=== PATIENT | female | born 1930 | race Two or more races ===

== ENCOUNTER 2017-01-04 08:08 | Emergency (ER) | payer MEDICARE, MEDICAID ==
[~2017-01-04] VITALS: Ht 154.9 cm; Wt 55.3 kg
[2017-01-04 08:17] VITALS: BP 104/55
== END 2017-01-04 09:37 | disposition home or self-care (01) ==
LOC: ER 08:10
DX: M47.892 Other spondylosis, cervical region (principal); M54.9 Dorsalgia, unspecified; G89.29 Other chronic pain; E11.9 Type 2 diabetes mellitus without complications; I10 Essential (primary) hypertension; Z88.6 Allergy status to analgesic agent
CPT/HCPCS: 72040

== ENCOUNTER 2017-06-22 19:55 | Inpatient (IN) | payer MEDICARE, MEDICAID ==
[~2017-06-22] VITALS: Ht 152.4 cm; Wt 55.1 kg
[2017-06-22] MEDS ORDERED: ACETAMINOPHEN 500 MG TAB PO ONE (20:01)
[2017-06-22] MEDS ORDERED: SODIUM CHLORIDE 0.9% 1,000 ML IV ONE (20:06)
[2017-06-22] MEDS ORDERED: ACETAMINOPHEN 325 MG TAB PO ONE (20:15)
[2017-06-22 20:39] LABS: Basophils # (auto) 0 uL; Basophils % (auto) 0.3 % (0.0-2.0); Eosinophils # (auto) 0 uL; Eosinophils % (auto) 0.1 % (0.0-7.0); Hematocrit 40.3 % (36.0-46.0); Hemoglobin 13.5 g/dL (12.2-16.2); Lymphocytes # (auto) 1.8 uL; Lymphocytes % (auto) 13.5 % (10.0-50.0); Mean Corpuscular Hgb Conc. 33.6 g/dL (32.0-36.0); Mean Corpuscular Volume 92.3 fL (80.0-100.0); Monocytes # (auto) 0.4 uL; Monocytes % (auto) 3.2 % (0.0-12.0); Neutrophils # (auto) 11.2 uL; Neutrophils % (auto) 82.9 % (37.0-80.0); Platelet Count (auto) 229 10^3/uL (140-450); Red Blood Cells 4.36 10^6/uL (4.0-5.20); Red Cell Distribution Width 14.1 % (11.8-14.3); White Blood Cell 13.6 10^3/uL (4.4-10.8)
[2017-06-22 20:56] LABS: Alanine Aminotransferase 39 U/L (13-56); Albumin 3.5 g/dL (3.4-5.0); Anion Gap 11 (5-15); Aspartate Aminotransferase 50 U/L (15-37); Blood Urea Nitrogen 11 mg/dL (7-18); Calcium 8.7 mg/dL (8.5-10.1); Carbon Dioxide 23 mmol/L (21-32); Chloride 97 mmol/L (98-107); GFR African American 120 mL/min; GFR Non-African American 99 mL/min; Glucose 258 mg/dL (74-106); Potassium 4.1 mmol/L (3.5-5.1); Sodium 131 mmol/L (136-145)
[2017-06-22 21:01] LABS: Alkaline Phosphatase 70 U/L (45-117); Lactic Acid w/Reflex 3.3 mmol/L (0.4-2.0); Total Protein 7.2 g/dL (6.4-8.2)
[2017-06-22] MEDS ORDERED: cefTRIAXone SOD 1,000 MG VL IV ONE (21:45)
[2017-06-22] MEDS ORDERED: cefTRIAXone 1GM/50ML D5W 50 ML IV ONE (23:12)
[2017-06-22 23:57] LABS: Urine Bacteria FEW /hpf (None Seen); Urine Blood Negative /uL (Negative); Urine Mucus FEW (None Seen); Urine Specific Gravity 1.013 (1.001-1.035); Urine WBC 1 /hpf (0 - 5)
[2017-06-23] MEDS ORDERED: VANCOMYCIN 1GM/250ML 250 ML IV ONE ×2 (00:51→01:30)
[2017-06-23] MEDS ORDERED: NOREPINEPHRINE 8 MG/250ML KIT 250 ML IV ONE (01:06)
[2017-06-23] MEDS ORDERED: NOREPINEPHRINE 8 MG/250ML KIT 250 ML IV SCH ×2 (01:30→14:30)
[2017-06-23] MEDS ORDERED: NITROGLYCERIN 0.4 MG SL TAB SL PRN (06:45)
[2017-06-23] MEDS ORDERED: MORPHINE SULFATE 10 MG/ML INJ 1ML SDV IV PRN (06:45)
[2017-06-23] MEDS ORDERED: ACETAMINOPHEN 500 MG TAB PO PRN (07:00)
[2017-06-23] MEDS ORDERED: ONDANSETRON HCL 4 MG/2 ML VIAL IV PRN (07:00)
[2017-06-23] MEDS ORDERED: HYDROcodone-ACET 5/325MG TAB PO PRN (07:00)
[2017-06-23] MEDS ORDERED: DEXTROSE (50%) 50ML SYRG IV PRN (07:00)
[2017-06-23] MEDS ORDERED: cefTRIAXone 1GM/50ML D5W 50 ML IV SCH ×2 (07:01→09:00)
[2017-06-23 07:12] LABS: Basophils # (auto) 0 uL; Basophils % (auto) 0.3 % (0.0-2.0); Eosinophils # (auto) 0 uL; Eosinophils % (auto) 0.3 % (0.0-7.0); Hematocrit 33.1 % (36.0-46.0); Lymphocytes # (auto) 1.8 uL; Lymphocytes % (auto) 15.2 % (10.0-50.0); Mean Corpuscular Hemoglobin 30.9 pg (28.0-32.0); Mean Corpuscular Hgb Conc. 33.2 g/dL (32.0-36.0); Monocytes # (auto) 0.7 uL; Monocytes % (auto) 6.2 % (0.0-12.0); Neutrophils # (auto) 9.1 uL; Platelet Count (auto) 189 10^3/uL (140-450); Red Blood Cells 3.55 10^6/uL (4.0-5.20); Red Cell Distribution Width 14.1 % (11.8-14.3); White Blood Cell 11.6 10^3/uL (4.4-10.8)
[2017-06-23 07:24] LABS: Albumin 2.5 g/dL (3.4-5.0); BUN/Creatinine Ratio 21.2; Potassium 3.8 mmol/L (3.5-5.1)
[2017-06-23 07:27] LABS: Bilirubin, Total 0.5 mg/dL (0.2-1.0); Total Protein 5.4 g/dL (6.4-8.2)
[2017-06-23] MEDS: InsuLIN REG 1unit/0.01ml Soln (100units/ml) SC SCH ×4 (07:43→22:38)
[2017-06-23] MEDS: ACCU-CHEK COMFORT CURVE STRIP VI SCH ×4 (07:44→22:00)
[2017-06-23] MEDS: GABAPENTIN 100 MG CAP PO SCH ×2 (09:05→22:37)
[2017-06-23] MEDS ORDERED: VANCOMYCIN PER PHARMACY 0 MG IV SCH (14:30)
[2017-06-23] MEDS ORDERED: SODIUM CHLORIDE 0.9% 1,000 ML IV SCH (14:30)
[2017-06-23] MEDS: SODIUM CHLORIDE 0.9% 1,000 ML IV SCH ×2 (14:45→17:46)
[2017-06-23] MEDS ORDERED: PANTOPRAZOLE 40 MG TAB PO ONE (14:45)
[2017-06-23 15:19] LABS: % Iron Saturation 4.5 % (15-50)
[2017-06-23] MEDS: VANCOMYCIN 1GM/250ML 250 ML IV SCH (16:00)
[2017-06-23] MEDS: PIPERACILLIN-TAZOB 2.25GM 50 ML IV SCH ×2 (17:40→18:00)
[2017-06-23 17:53] VITALS: BP 131/51
[2017-06-23] MEDS ORDERED: PIPERACILLIN-TAZOB 3.375GM 100 ML IV SCH (18:00)
[2017-06-23 20:00] VITALS: BP 106/51
[2017-06-23 22:14] VITALS: BP 106/51
[2017-06-23] MEDS: ATORVASTATIN 20 MG TAB PO SCH (22:36)
[2017-06-24] MEDS: PIPERACILLIN-TAZOB 2.25GM 50 ML IV SCH ×2 (00:41→06:13)
[2017-06-24] MEDS: SODIUM CHLORIDE 0.9% 1,000 ML IV SCH ×2 (04:05→04:14)
[2017-06-24] MEDS: VANCOMYCIN 1GM/250ML 250 ML IV SCH (04:15)
[2017-06-24 05:00] VITALS: BP 108/58
[2017-06-24] MEDS: ACCU-CHEK COMFORT CURVE STRIP VI SCH ×4 (06:22→22:01)
[2017-06-24 06:24] LABS: Basophils # (auto) 0 uL; Basophils % (auto) 0.4 % (0.0-2.0); Eosinophils # (auto) 0.1 uL; Eosinophils % (auto) 1.2 % (0.0-7.0); Hemoglobin 11.3 g/dL (12.2-16.2); Lymphocytes # (auto) 2.1 uL; Lymphocytes % (auto) 23.5 % (10.0-50.0); Mean Corpuscular Hemoglobin 31.7 pg (28.0-32.0); Mean Corpuscular Hgb Conc. 34.3 g/dL (32.0-36.0); Mean Corpuscular Volume 92.5 fL (80.0-100.0); Monocytes # (auto) 0.8 uL; Monocytes % (auto) 8.6 % (0.0-12.0); Neutrophils # (auto) 5.8 uL; Neutrophils % (auto) 66.3 % (37.0-80.0); Nucleated Red Blood Cells % 0.1 %; Platelet Count (auto) 187 10^3/uL (140-450); Red Blood Cells 3.57 10^6/uL (4.0-5.20); Red Cell Distribution Width 13.9 % (11.8-14.3); White Blood Cell 8.8 10^3/uL (4.4-10.8)
[2017-06-24] MEDS: InsuLIN REG 1unit/0.01ml Soln (100units/ml) SC SCH ×4 (06:27→22:01)
[2017-06-24 06:46] LABS: Albumin 2.3 g/dL (3.4-5.0); BUN/Creatinine Ratio 10.4; Bilirubin, Total 0.6 mg/dL (0.2-1.0); Calcium 7.6 mg/dL (8.5-10.1); Phosphorus 1.9 mg/dL (2.5-4.90); Potassium 3.5 mmol/L (3.5-5.1); Total Protein 5.4 g/dL (6.4-8.2)
[2017-06-24 09:00] VITALS: BP 111/61
[2017-06-24] MEDS: PANTOPRAZOLE 40 MG TAB PO SCH (09:57)
[2017-06-24] MEDS: LEVOFLOXACIN 500 MG TAB PO SCH (09:58)
[2017-06-24] MEDS: GABAPENTIN 100 MG CAP PO SCH ×2 (09:58→21:54)
[2017-06-24 13:00] VITALS: BP 111/53
[2017-06-24] MEDS: metroNIDAZOLE 500 MG TAB PO SCH ×2 (14:58→21:54)
[2017-06-24 17:24] VITALS: BP 104/46
[2017-06-24] MEDS ORDERED: METF-371 PO (17:49)
[2017-06-24] MEDS ORDERED: ALEN70TA55 PO (17:50)
[2017-06-24] MEDS ORDERED: LINA5TAB PO (17:50)
[2017-06-24] MEDS ORDERED: GABA-494 PO (17:50)
[2017-06-24] MEDS ORDERED: ATOR20TA PO (17:50)
[2017-06-24] MEDS ORDERED: ACET30TA15 PO (17:50)
[2017-06-24] MEDS: PRO-STAT 64 30ML PO SCH (18:00)
[2017-06-24 21:33] VITALS: BP 113/63
[2017-06-24] MEDS: ATORVASTATIN 20 MG TAB PO SCH (21:54)
[2017-06-25 05:04] VITALS: BP 129/53
[2017-06-25] MEDS: metroNIDAZOLE 500 MG TAB PO SCH ×2 (05:39→14:00)
[2017-06-25] MEDS: ACCU-CHEK COMFORT CURVE STRIP VI SCH ×2 (05:44→11:30)
[2017-06-25] MEDS: InsuLIN REG 1unit/0.01ml Soln (100units/ml) SC SCH ×2 (05:49→11:30)
[2017-06-25 07:26] LABS: Basophils # (auto) 0 uL; Basophils % (auto) 0.3 % (0.0-2.0); Eosinophils # (auto) 0.1 uL; Eosinophils % (auto) 1.3 % (0.0-7.0); Hematocrit 37.7 % (36.0-46.0); Hemoglobin 12.5 g/dL (12.2-16.2); Lymphocytes # (auto) 2.5 uL; Lymphocytes % (auto) 30.6 % (10.0-50.0); Mean Corpuscular Hemoglobin 30.4 pg (28.0-32.0); Mean Corpuscular Hgb Conc. 33.3 g/dL (32.0-36.0); Mean Corpuscular Volume 91.4 fL (80.0-100.0); Monocytes # (auto) 0.5 uL; Monocytes % (auto) 6.2 % (0.0-12.0); Neutrophils # (auto) 5.1 uL; Neutrophils % (auto) 61.6 % (37.0-80.0); Nucleated Red Blood Cells % 0.1 %; Platelet Count (auto) 258 10^3/uL (140-450); Red Blood Cells 4.12 10^6/uL (4.0-5.20); Red Cell Distribution Width 14.1 % (11.8-14.3); White Blood Cell 8.2 10^3/uL (4.4-10.8)
[2017-06-25 08:00] VITALS: BP 133/56
[2017-06-25] MEDS: PRO-STAT 64 30ML PO SCH (08:00)
[2017-06-25 08:07] VITALS: BP 113/65
[2017-06-25 08:07] LABS: BUN/Creatinine Ratio 14.3; Calcium 8.3 mg/dL (8.5-10.1); Potassium 3.2 mmol/L (3.5-5.1)
[2017-06-25] MEDS ORDERED: POTASSIUM CHL 20 Meq TABLET PO ONE (10:15)
[2017-06-25] MEDS: LEVOFLOXACIN 500 MG TAB PO SCH (10:17)
[2017-06-25] MEDS: GABAPENTIN 100 MG CAP PO SCH (10:18)
[2017-06-25] MEDS: PANTOPRAZOLE 40 MG TAB PO SCH (10:18)
[2017-06-25 10:43] VITALS: BP 113/65
[2017-06-25 12:13] VITALS: BP 116/60
== END 2017-06-25 15:15 | disposition home or self-care (01) | DRG 871 ==
LOC: EDBD 19:55 → ER 19:57 → TELE 19:58 → TELE-CENTR 06-23 14:28 → CENTRAL 06-24 10:29
PROVIDERS: ADMIT Nurse Practitioner Family; ATTEND Internal Medicine
DX: A41.9 Sepsis, unspecified organism (principal); R65.21 Severe sepsis with septic shock; G93.41 Metabolic encephalopathy; I95.9 Hypotension, unspecified; E44.0 Moderate protein-calorie malnutrition; E11.65 Type 2 diabetes mellitus with hyperglycemia; M48.56XA Collapsed vertebra, not elsewhere classified, lumbar region, initial encounter for fracture; E87.1 Hypo-osmolality and hyponatremia; D63.8 Anemia in other chronic diseases classified elsewhere; E86.0 Dehydration; K57.30 Diverticulosis of large intestine without perforation or abscess without bleeding; E78.5 Hyperlipidemia, unspecified; I10 Essential (primary) hypertension; K52.9 Noninfective gastroenteritis and colitis, unspecified; Z68.23 Body mass index [BMI] 23.0-23.9, adult
CPT/HCPCS: 36415; 71010; 74176; 80048; 80053; 81001; 82962; 83036; 83540; 83550; 83605; 83735; 83930; 83935; 84100; 84484; 85025; 87040; 87086; 93005; 96361; 96374; J0696; J1815; J2543

== ENCOUNTER 2021-12-23 06:53 | Inpatient (IN) | payer MEDICARE, MEDICAID ==
[~2021-12-23] VITALS: Ht 165.1 cm; Wt 51.0 kg
[~2021-12-23 06:53] MED LIST: ACET30TA15 PO; ATOR20TA PO; FAMO20TA10 PO; LINA5TAB PO; METF-371 PO; POLY33504 PO; TEMA15CA2 PO
[2021-12-23 08:14] LABS: Basophils # (auto) 0.1 10 ^3/uL (0-0.2); Basophils % (auto) 0.8 % (0.0-2.0); Eosinophils # (auto) 0.1 10 ^3/uL (0-0.8); Eosinophils % (auto) 0.8 % (0.0-7.0); Hematocrit 39.1 % (36.0-46.0); Hemoglobin 13.3 g/dL (12.2-16.2); Lymphocytes # (auto) 1.6 10 ^3/uL (0.4-5.4); Lymphocytes % (auto) 14.7 % (10.0-50.0); Mean Corpuscular Hemoglobin 30.5 pg (28.0-32.0); Mean Corpuscular Volume 89.5 fL (80.0-100.0); Monocytes # (auto) 0.4 10 ^3/uL (0-1.3); Monocytes % (auto) 3.3 % (0.0-12.0); Neutrophils # (auto) 8.9 10 ^3/uL (1.6-8.6); Neutrophils % (auto) 80.4 % (37.0-80.0); Red Blood Cells 4.36 10^6/uL (4.0-5.20); Red Cell Distribution Width 14.6 % (11.8-14.3); White Blood Cell 11.1 10^3/uL (4.4-10.8)
[2021-12-23 08:29] LABS: Albumin 3.6 g/dL (3.4-5.0); Calcium 8.9 mg/dL (8.5-10.1); Potassium 4.3 mmol/L (3.5-5.1)
[2021-12-23 08:32] LABS: Bilirubin, Total 0.5 mg/dL (0.2-1.0); Total Protein 7.2 g/dL (6.4-8.2)
[2021-12-23 12:24] LABS: Cholesterol 135 mg/dL (< 200)
[2021-12-23 12:26] LABS: HDL Cholesterol 44 mg/dL (40-59); LDL Cholesterol 72 mg/dL (< 100); Triglycerides 149 mg/dL (< 150)
[2021-12-23] MEDS ORDERED: DEXTROSE (50%) 50ML SYRG IV PRN (12:30)
[2021-12-23 12:42] LABS: Urine WBC None Seen /hpf (0 - 5)
[2021-12-23] MEDS ORDERED: SODIUM CHLORIDE 0.9% 1,000 ML IV ONE (12:45)
[2021-12-23] MEDS: ONDANSETRON HCL 4 MG/2 ML VIAL IV PRN (13:12)
[2021-12-23] MEDS: MORPHINE SULFATE INJECTION 2 MG/ML SYRG IV PRN ×2 (13:14→23:38)
[2021-12-23 13:31] LABS: Urine Bacteria NONE SEEN /hpf (None Seen); Urine Blood Negative /uL (Negative); Urine Specific Gravity 1.022 (1.001-1.035)
[2021-12-23 13:40] LABS: INR 1.05 (0.9-1.15)
[2021-12-23 15:12] VITALS: BP 115/86
[2021-12-23] MEDS ORDERED: ZOLP10TA PO (16:02)
[2021-12-23 17:28] VITALS: BP 108/50
[2021-12-23] MEDS: InsuLIN REG 1unit/0.01ml Soln (100units/ml) SC SCH ×2 (18:00→23:37)
[2021-12-23] MEDS: ACCU-CHEK COMFORT CURVE STRIP VI SCH ×2 (18:00→23:36)
[2021-12-23] MEDS ORDERED: LACTATED RINGER'S 1,000 ML IV SCH (19:15)
[2021-12-23 21:16] VITALS: BP 104/57
[2021-12-24] VITALS (14 sets, daily range): BP systolic 107–140; BP diastolic 52–72
[2021-12-24 02:50] LABS: INR 1.07 (0.9-1.15); Partial Thromboplastin Time 27.2 sec (23.6-33.0)
[2021-12-24 05:27] LABS: Basophils # (auto) 0 10 ^3/uL (0-0.2); Basophils % (auto) 0.3 % (0.0-2.0); Eosinophils # (auto) 0.1 10 ^3/uL (0-0.8); Eosinophils % (auto) 0.4 % (0.0-7.0); Hematocrit 35.3 % (36.0-46.0); Hemoglobin 12.1 g/dL (12.2-16.2); Lymphocytes # (auto) 1.6 10 ^3/uL (0.4-5.4); Lymphocytes % (auto) 11.7 % (10.0-50.0); Mean Corpuscular Hemoglobin 30.2 pg (28.0-32.0); Mean Corpuscular Hgb Conc. 34.3 g/dL (32.0-36.0); Mean Corpuscular Volume 88.1 fL (80.0-100.0); Monocytes # (auto) 0.7 10 ^3/uL (0-1.3); Neutrophils % (auto) 82.6 % (37.0-80.0); Red Cell Distribution Width 14.3 % (11.8-14.3); White Blood Cell 13.3 10^3/uL (4.4-10.8)
[2021-12-24] MEDS: InsuLIN REG 1unit/0.01ml Soln (100units/ml) SC SCH ×4 (05:47→23:39)
[2021-12-24] MEDS: ACCU-CHEK COMFORT CURVE STRIP VI SCH ×4 (05:48→23:43)
[2021-12-24 05:50] LABS: Potassium 4.1 mmol/L (3.5-5.1)
[2021-12-24 06:07] LABS: Albumin 3.1 g/dL (3.4-5.0); BUN/Creatinine Ratio 20.5; Bilirubin, Total 0.9 mg/dL (0.2-1.0); Calcium 8.8 mg/dL (8.5-10.1); Total Protein 6.3 g/dL (6.4-8.2)
[2021-12-24] MEDS ORDERED: IOHEXOL 300 MG/ML 100ML BOTTLE IJ ONE (07:04)
[2021-12-24] MEDS ORDERED: ceFAZolin 1GM/50ML 100 ML IV ONE (07:09)
[2021-12-24] MEDS ORDERED: fentaNYL CITRATE 100 MCG/2 ML VL ONE (07:18)
[2021-12-24] MEDS: BUPIVACAINE W/ EPINEPH 0.25% INJ 50ML MDV ONE ×2 (07:39→08:20)
[2021-12-24] MEDS ORDERED: PROPOFOL 10 MG/ML 20 ML IV ONE (08:18)
[2021-12-24] MEDS ORDERED: ONDANSETRON HCL 4 MG/2 ML VIAL IV ONE (08:18)
[2021-12-24] MEDS: ceFAZolin 1GM/50ML 50 ML IV SCH ×3 (08:30→21:02)
[2021-12-24] MEDS: LACTATED RINGER'S 1,000 ML IV SCH ×2 (08:30→18:30)
[2021-12-24] MEDS ORDERED: ONDANSETRON HCL 4 MG/2 ML VIAL IV PRN (08:45)
[2021-12-24] MEDS ORDERED: fentaNYL CITRATE 100 MCG/2 ML VL IV PRN (08:45)
[2021-12-24] MEDS ORDERED: HYDROmorphone HCL 2 MG/ML VL/or syr ONE (08:58)
[2021-12-24] MEDS: HYDROmorphone HCL 2 MG/ML VL/or syr IV PRN ×2 (09:00→09:11)
[2021-12-24] MEDS ORDERED: HYDROmorphone HCL 2 MG/ML VL/or syr IV PRN (09:00)
[2021-12-24] MEDS ORDERED: ENOXAPARIN SOD 40 MG/0.4 ML SYRINGE SC SCH (10:00)
[2021-12-24] MEDS: ONDANSETRON HCL 4 MG/2 ML VIAL IV PRN ×2 (10:36→14:25)
[2021-12-24] MEDS: MORPHINE SULFATE INJECTION 2 MG/ML SYRG IV PRN (14:25)
[2021-12-24] MEDS ORDERED: AZITHROMYCIN 500MG/ 250ML 250 ML IV ONE (19:15)
[2021-12-25 00:14] LABS: Urine Bacteria None Seen /hpf (None Seen)
[2021-12-25 01:09] LABS: Urine Specific Gravity 1.031 (1.001-1.035)
[2021-12-25 01:10] LABS: Urine Blood Trace /uL (Negative); Urine WBC 4 /hpf (0 - 5); Urine WBC Clumps None Seen /hpf (None Seen)
[2021-12-25] MEDS: LACTATED RINGER'S 1,000 ML IV SCH ×2 (04:30→13:26)
[2021-12-25 04:37] VITALS: BP 101/52
[2021-12-25 05:59] LABS: Albumin 2.7 g/dL (3.4-5.0); Calcium 8.4 mg/dL (8.5-10.1); Potassium 4.4 mmol/L (3.5-5.1)
[2021-12-25 06:04] LABS: BUN/Creatinine Ratio 15.7; Bilirubin, Total 0.8 mg/dL (0.2-1.0); Total Protein 6.1 g/dL (6.4-8.2)
[2021-12-25] MEDS: InsuLIN REG 1unit/0.01ml Soln (100units/ml) SC SCH ×4 (06:06→22:26)
[2021-12-25] MEDS: ACCU-CHEK COMFORT CURVE STRIP VI SCH ×4 (06:10→22:28)
[2021-12-25 06:32] LABS: Basophils # (auto) 0 10 ^3/uL (0-0.2); Basophils % (auto) 0.2 % (0.0-2.0); Eosinophils # (auto) 0 10 ^3/uL (0-0.8); Hematocrit 33.6 % (36.0-46.0); Hemoglobin 11.4 g/dL (12.2-16.2); Lymphocytes # (auto) 1.4 10 ^3/uL (0.4-5.4); Lymphocytes % (auto) 9.6 % (10.0-50.0); Mean Corpuscular Hemoglobin 30.3 pg (28.0-32.0); Mean Corpuscular Volume 89.1 fL (80.0-100.0); Monocytes # (auto) 0.8 10 ^3/uL (0-1.3); Monocytes % (auto) 5.6 % (0.0-12.0); Neutrophils # (auto) 11.9 10 ^3/uL (1.6-8.6); Neutrophils % (auto) 84.6 % (37.0-80.0); Red Blood Cells 3.77 10^6/uL (4.0-5.20); Red Cell Distribution Width 14.5 % (11.8-14.3); White Blood Cell 14.1 10^3/uL (4.4-10.8)
[2021-12-25 08:30] VITALS: BP 102/57
[2021-12-25] MEDS: ENOXAPARIN SOD 40 MG/0.4 ML SYRINGE SC SCH (08:33)
[2021-12-25] MEDS: AZITHROMYCIN 500MG/ 250ML 250 ML IV SCH (08:33)
[2021-12-25] MEDS ORDERED: ENOXAPARIN SOD 40 MG/0.4 ML SYRINGE SC SCH (10:00)
[2021-12-25] MEDS ORDERED: cefTRIAXone 1GM/50ML D5W 50 ML IV ONE (11:00)
[2021-12-25] MEDS ORDERED: DEXTROSE (50%) 50ML SYRG IV PRN (11:00)
[2021-12-25] MEDS: MORPHINE SULFATE INJECTION 2 MG/ML SYRG IV PRN ×2 (11:03→15:38)
[2021-12-25] MEDS ORDERED: TEMAZEPAM 15 MG CAP PO PRN (11:30)
[2021-12-25 12:01] LABS: Basophils # (auto) 0.1 10 ^3/uL (0-0.2); Basophils % (auto) 0.4 % (0.0-2.0); Eosinophils # (auto) 0 10 ^3/uL (0-0.8); Hematocrit 33.1 % (36.0-46.0); Lymphocytes # (auto) 1.7 10 ^3/uL (0.4-5.4); Lymphocytes % (auto) 12.3 % (10.0-50.0); Mean Corpuscular Hemoglobin 29.7 pg (28.0-32.0); Mean Corpuscular Hgb Conc. 33.2 g/dL (32.0-36.0); Mean Corpuscular Volume 89.6 fL (80.0-100.0); Monocytes # (auto) 0.7 10 ^3/uL (0-1.3); Monocytes % (auto) 5.3 % (0.0-12.0); Neutrophils # (auto) 11.2 10 ^3/uL (1.6-8.6); Red Blood Cells 3.69 10^6/uL (4.0-5.20); Red Cell Distribution Width 14.3 % (11.8-14.3); White Blood Cell 13.7 10^3/uL (4.4-10.8)
[2021-12-25 12:30] VITALS: BP 123/51
[2021-12-25 12:37] LABS: Albumin 2.7 g/dL (3.4-5.0); Calcium 8.4 mg/dL (8.5-10.1); Potassium 4.4 mmol/L (3.5-5.1)
[2021-12-25 12:42] LABS: BUN/Creatinine Ratio 14.3; Total Protein 6.3 g/dL (6.4-8.2)
[2021-12-25 13:43] LABS: Urine Blood 1+ /uL (Negative); Urine Specific Gravity 1.026 (1.001-1.035)
[2021-12-25 13:44] LABS: Urine Hyaline Cast 1+ /lpf (0 - 2)
[2021-12-25 13:45] LABS: Urine Bacteria 1+ /hpf (None Seen)
[2021-12-25 16:30] VITALS: BP 116/55
[2021-12-25] MEDS: metFORMIN HYDROCHLORIDE 500 MG TAB PO SCH (17:35)
[2021-12-25 22:00] VITALS: BP 111/54
[2021-12-26] MEDS: LACTATED RINGER'S 1,000 ML IV SCH ×2 (00:30→10:30)
[2021-12-26 05:00] VITALS: BP 102/64
[2021-12-26] MEDS: InsuLIN REG 1unit/0.01ml Soln (100units/ml) SC SCH ×4 (06:15→22:34)
[2021-12-26] MEDS: ACCU-CHEK COMFORT CURVE STRIP VI SCH ×4 (06:21→22:33)
[2021-12-26] MEDS: HYDROcodone-ACET 10/325MG TAB PO PRN ×2 (06:22→16:59)
[2021-12-26 08:00] VITALS: BP 104/55
[2021-12-26 08:59] VITALS: BP 104/55
[2021-12-26] MEDS: metFORMIN HYDROCHLORIDE 500 MG TAB PO SCH (09:17)
[2021-12-26] MEDS: cefTRIAXone 1GM/50ML D5W 50 ML IV SCH (09:19)
[2021-12-26] MEDS: AZITHROMYCIN 500MG/ 250ML 250 ML IV SCH (10:30)
[2021-12-26] MEDS: ENOXAPARIN SOD 40 MG/0.4 ML SYRINGE SC SCH (10:30)
[2021-12-26 11:54] LABS: Hemoglobin 10.1 g/dL (12.2-16.2)
[2021-12-26 12:57] VITALS: BP 97/47
[2021-12-26 17:00] VITALS: BP 101/45
[2021-12-26 22:00] VITALS: BP 102/54
[2021-12-27] VITALS (7 sets, daily range): BP systolic 98–171; BP diastolic 46–61
[2021-12-27 06:24] LABS: Basophils # (auto) 0 10 ^3/uL (0-0.2); Basophils % (auto) 0.4 % (0.0-2.0); Eosinophils # (auto) 0.1 10 ^3/uL (0-0.8); Eosinophils % (auto) 0.7 % (0.0-7.0); Hemoglobin 9.1 g/dL (12.2-16.2); Lymphocytes # (auto) 1.2 10 ^3/uL (0.4-5.4); Mean Corpuscular Hemoglobin 30.9 pg (28.0-32.0); Mean Corpuscular Hgb Conc. 35.1 g/dL (32.0-36.0); Mean Corpuscular Volume 88.1 fL (80.0-100.0); Monocytes # (auto) 0.7 10 ^3/uL (0-1.3); Monocytes % (auto) 6.4 % (0.0-12.0); Neutrophils # (auto) 8.9 10 ^3/uL (1.6-8.6); Neutrophils % (auto) 81.5 % (37.0-80.0); Red Blood Cells 2.95 10^6/uL (4.0-5.20); Red Cell Distribution Width 14.1 % (11.8-14.3); White Blood Cell 10.9 10^3/uL (4.4-10.8)
[2021-12-27 06:29] LABS: Calcium 7.9 mg/dL (8.5-10.1); Potassium 4.3 mmol/L (3.5-5.1)
[2021-12-27] MEDS: InsuLIN REG 1unit/0.01ml Soln (100units/ml) SC SCH ×3 (06:53→17:00)
[2021-12-27] MEDS: ACCU-CHEK COMFORT CURVE STRIP VI SCH ×3 (06:53→17:18)
[2021-12-27] MEDS: cefTRIAXone 1GM/50ML D5W 50 ML IV SCH (09:15)
[2021-12-27] MEDS: HYDROcodone-ACET 10/325MG TAB PO PRN (09:20)
[2021-12-27] MEDS: ENOXAPARIN SOD 40 MG/0.4 ML SYRINGE SC SCH (10:41)
[2021-12-27] MEDS ORDERED: LACTULOSE 20Gm/30ML SOLN PO ONE (11:45)
[2021-12-27] MEDS ORDERED: DOCUSATE SOD 100 MG CAP PO ONE (11:45)
== END 2021-12-27 19:00 | DRG 480 ==
LOC: EDBD 06:53 → ER 06:53 → OVERFLOW 12:18 → EAST 14:11
PROVIDERS: ADMIT Registered Nurse; ATTEND Internal Medicine
PROC: BQ101ZZ Fluoroscopy of Right Hip using Low Osmolar Contrast (ICD-10-PCS; 2021-12-24)
PROC: 0QS634Z Reposition Right Upper Femur with Internal Fixation Device, Percutaneous Approach (ICD-10-PCS; principal; 2021-12-24 07:21)
DX: S72.144A Nondisplaced intertrochanteric fracture of right femur, initial encounter for closed fracture (principal); I50.31 Acute diastolic (congestive) heart failure; G30.9 Alzheimer's disease, unspecified; F02.80 Dementia in other diseases classified elsewhere, unspecified severity, without behavioral disturbance, psychotic disturbance, mood disturbance, and anxiety; D72.829 Elevated white blood cell count, unspecified; E11.9 Type 2 diabetes mellitus without complications; E78.5 Hyperlipidemia, unspecified; H54.7 Unspecified visual loss; H91.90 Unspecified hearing loss, unspecified ear; I11.0 Hypertensive heart disease with heart failure; Z20.822 Contact with and (suspected) exposure to COVID-19; W01.0XXA Fall on same level from slipping, tripping and stumbling without subsequent striking against object, initial encounter; Z88.8 Allergy status to other drugs, medicaments and biological substances; Z88.6 Allergy status to analgesic agent; Y93.89 Activity, other specified; Y92.89 Other specified places as the place of occurrence of the external cause; Y99.8 Other external cause status; Z79.84 Long term (current) use of oral hypoglycemic drugs
CPT/HCPCS: 36415; 70450; 71045; 72192; 73501; 73502; 76000; 80048; 80053; 80061; 81001; 82962; 83036; 85014; 85018; 85025; 85610; 85730; 86850; 86870; 86900; 86901; 87040; 87081; 87086; 93005; 93306; 97110; 97116; 97163; 97530; A4565; C1713; G0378; J0690; J0696; J1815; J2405; J2704